=== PATIENT | female | born 1965 | race Caucasian/White ===

== ENCOUNTER 2017-01-13 08:09 | Day surgery (SDC) | payer OTHER ==
[2017-01-12 10:52] LABS: MANUAL DIFF NEEDED? NO
[2017-01-12 10:55] LABS: BASO% 0.1 % (0.0-0.8); EOS# 0.16 X1000 (0.0-0.7); HEMATOCRIT 44.6 % (37.0-47.0); HEMOGLOBIN 14.9 g/dL (12.0-16.0); IMM GRAN# 0.05 X1000 (0.0-0.04); IMM GRAN% 0.3 % (0.0-0.5); LYMPH# 4.33 X1000 (1.2-3.4); MCH 28.1 PG (27-31); MCHC 33.4 g/dL (33-37); MONO# 0.78 X1000 (0.11-0.59); MPV 9.9 FL (7.4-10.4); NEUT% 65.6 % (42.2-75.2); PLT 345 X1000 (130-400); RBC 5.31 XMIL (4.2-5.4)
[2017-01-13] MEDS ORDERED: FENTANYL ONE (08:41)
[2017-01-13] MEDS ORDERED: DIPRIVAN 1% ONE (08:41)
[2017-01-13] MEDS ORDERED: VERSED ONE (08:41)
[2017-01-13] MEDS ORDERED: LR 1,000 ML ONE (08:53)
[2017-01-13] MEDS ORDERED: BICITRA ONE (08:53)
[2017-01-13] MEDS ORDERED: PEPCID ONE (08:54)
[2017-01-13] MEDS ORDERED: NORCO-5 PO PRN (09:57)
[2017-01-13] MEDS ORDERED: DILAUDID ONE (10:29)
--- NOTE | 2017-01-13 10:47 | OPERATIVE NOTE ---
PROCEDURE DATE: 01/13/2017 PREOPERATIVE DIAGNOSIS: Retained intrauterine device. POSTOPERATIVE DIAGNOSIS: Retained intrauterine device. PROCEDURE PERFORMED: Hysteroscopic intrauterine device removal. SURGEON: Luiz Liang MD ANESTHESIA: General. FINDINGS: Normal-appearing cervix and endometrium, IUD in place. COMPLICATIONS: None apparent. ESTIMATED BLOOD LOSS: 5 mL. SPECIMENS REMOVED: IUD. OPERATIVE COURSE: After the patient was identified and consents were reviewed, general anesthesia was administered without complication. The legs were placed in candy-cane stirrups. The vagina was prepped and draped in normal sterile fashion. A bivalve speculum was inserted into the vagina. The anterior aspect of the cervix was grasped with a single-tooth tenaculum. The cervix was then dilated using Hanks dilators to accommodate a 5 mm operative hysteroscope. The hysteroscope was then advanced into the endometrial cavity. The IUD was found intact. The IUD was removed without difficulty and sent to Pathology. All instruments were then removed. The patient tolerated the procedure well. She was taken to the recovery room afterwards in stable condition.
[2017-01-13 11:16] VITALS: BP 132/62
[2017-01-13] MEDS ORDERED: XYLOCAINE-MPF 2% ONE (16:45)
[2017-01-13] MEDS ORDERED: ZOFRAN ONE (16:45)
[2017-01-13] MEDS ORDERED: TORADOL ONE (16:45)
== END 2017-01-13 13:45 | disposition home or self-care (01) ==
LOC: P.OR 08:09 → P.WC 08:11 → P.OR 13:45
PROVIDERS: ATTEND Obstetrics & Gynecology
DX: Z30.432 Encounter for removal of intrauterine contraceptive device (principal); I10 Essential (primary) hypertension; E78.00 Pure hypercholesterolemia, unspecified; F41.9 Anxiety disorder, unspecified; F32.9 Major depressive disorder, single episode, unspecified; F43.10 Post-traumatic stress disorder, unspecified; E11.9 Type 2 diabetes mellitus without complications; Z82.49 Family history of ischemic heart disease and other diseases of the circulatory system; Z82.3 Family history of stroke; Z83.3 Family history of diabetes mellitus; Z79.84 Long term (current) use of oral hypoglycemic drugs; Z79.1 Long term (current) use of non-steroidal anti-inflammatories (NSAID); Z79.899 Other long term (current) drug therapy
CPT/HCPCS: 36415; 82948; 85025; J1170; J1885; J2250; J2405; J3010; J7120; S0028